=== PATIENT | male | born 1970 | race Native Hawaiian/Other Pacific Islander ===

== ENCOUNTER 2017-11-25 05:05 | Emergency (ER) | payer OTHER ==
--- NOTE | 2017-11-25 05:18 | C.PDOC ---
History Of Present Illness 47 year old male presents to the ED c/o right flank pain and mid epigastric pain , onset around midnight. Patient has a history of kidney stones. Describes pain as sharp and stabbing. Associated with some nausea. No vomiting, diarrhea, fever , chills, or urinary symptoms. Time Seen by Provider: 11/25/17 05:16 Chief Complaint (Nursing): Abdominal Pain History Per: Patient History/Exam Limitations: no limitations Onset/Duration Of Symptoms: Hrs Current Symptoms Are (Timing): Still Present Severity: Moderate Pain Scale Rating Of: 6 Location Of Pain/Discomfort: Epigastric Radiation Of Pain To:: Flank Quality Of Discomfort: Sharp, Stabbing Associated Symptoms: Nausea Exacerbating Factors: None Alleviating Factors: None Recent travel outside of the [place]: No Past Medical History Reviewed: Historical Data, Nursing Documentation, Vital Signs Vital Signs: Last Vital Signs Temp 97.4 F L 11/25/17 05:17 Pulse 69 11/25/17 05:17 Resp 18 11/25/17 05:17 BP 149/95 H 11/25/17 05:17 Pulse Ox 98 11/25/17 05:17 - Medical History PMH: HTN, Kidney Stones Surgical History: No Surg Hx Family History: States: No Known Family Hx - Social History Hx Tobacco Use: No Hx Alcohol Use: Yes Hx Substance Use: No Review Of Systems Constitutional: Negative for: Fever, Chills Gastrointestinal: Positive for: Nausea, Abdominal Pain. Negative for: Vomiting , Diarrhea Genitourinary: Negative for: Dysuria, Frequency, Hematuria Musculoskeletal: Positive for: Other (right flank pain) Physical Exam - Physical Exam Appears: Non-toxic, No Acute Distress Skin: Warm, Dry Head: Normacephalic Eye(s): bilateral: Normal Inspection Oral Mucosa: Moist Neck: Supple Chest: Symmetrical Cardiovascular: Rhythm Regular Respiratory: No Rales, No Rhonchi, No Wheezing Gastrointestinal/Abdominal: Bowel Sounds (tympanic to percussion), Soft, Tenderness (to right flank), No Guarding, No Rebound Extremity: Bilateral: Atraumatic, Normal Color And Temperature, Normal ROM Neurological/Psych: Oriented x3 Gait: Steady ED Course And Treatment - Laboratory Results Result Diagrams: 11/25/17 05:38 11/25/17 05:38 Progress Note: Blood work and urine ordered and reviewed. Patient started on IV fluids, Toradol, and Zofran. Disposition Counseled Patient/Family Regarding: Studies Performed, Diagnosis - Disposition Disposition Time: 05:18 Condition: FAIR Forms: [facility] (Arabic) - Clinical Impression Clinical Impression: Abdominal pain - Scribe Statement The provider has reviewed the documentation as recorded by the Scribe (Precious Knox) Provider Attestation: All medical record entries made by the Scribe were at my direction and personally dictated by me. I have reviewed the chart and agree that the record accurately reflects my personal performance of the history, physical exam, medical decision making, and the department course for this patient. I have also personally directed, reviewed, and agree with the discharge instructions and disposition. Physician Patient Turnover Patient Signed Over To: Moe Barrera Handoff Comments: pending ct, re-eval and disposition
[2017-11-25 05:23] VITALS: RESP 18
[2017-11-25] MEDS ORDERED: Sodium Chloride 0.9% 1,000 ML IV ONE ×2 (05:24→06:05)
[2017-11-25] MEDS ORDERED: Sodium Chloride 0.9% 1,000 ML ONE ×2 (05:27→06:20)
[2017-11-25 05:41] LABS: BASO # 0.1 K/uL (0.0-0.2); BASO % 1.3 % (0.0-2.0); EOS # 0.1 K/uL (0.0-0.7); EOS % 1.6 % (0.0-4.0); HEMOGLOBIN 15.2 g/dL (12.0-18.0); LYMPH # 1.8 K/uL (1.0-4.3); LYMPH % 21.8 % (20.0-40.0); MEAN CELL VOLUME 89.3 fL (80.0-94.0); MEAN CORPUSCULAR HEMOGLOBIN 31.6 pg (27.0-31.0); MEAN CORPUSCULAR HGB CONC 35.3 g/dL (33.0-37.0); MEAN PLATELET VOLUME 9.4 fL (7.2-11.7); MONO # 0.4 K/uL (0.0-0.8); MONO % 4.6 % (0.0-10.0); NEUT # 5.9 K/uL (1.8-7.0); NEUT % 70.7 % (50.0-75.0); NRBC % 0.1 % (0.0-2.0); RBC 4.81 Mil/uL (4.40-5.90); RED CELL DISTRIBUTION WIDTH 13.1 % (11.5-14.5); WHITE BLOOD COUNT 8.4 K/uL (4.8-10.8)
[2017-11-25 05:55] LABS: ALB/GLOB RATIO 1.5 (1.0-2.1); ALBUMIN 4.5 g/dL (3.5-5.0); ALT/SGPT 64 U/L (21-72); AST/SGOT 29 U/L (17-59); BLOOD UREA NITROGEN 14 mg/dL (9-20); CALCIUM 8.9 mg/dl (8.6-10.4); GFR AFRICAN-AMERICAN > 60; GFR NON-AFRICAN AMERICAN > 60; INR 0.9; LIPASE 127 U/L (23-300); PROTHROMBIN TIME 10.2 SECONDS (9.7-12.2)
[2017-11-25 06:35] LABS: URINE BILIRUBIN NEGATIVE (NEGATIVE); URINE BLOOD NEGATIVE (NEGATIVE); URINE CLARITY Clear (Clear); URINE COLOR Yellow (YELLOW); URINE GLUCOSE (UA) NORMAL (Normal); URINE LEUKOCYTE ESTERASE NEG Leu/uL (Negative); URINE PROTEIN NEGATIVE (NEGATIVE); URINE UROBILINOGEN NORMAL mg/dL (0.2-1.0)
[2017-11-25] MEDS ORDERED: Iodixanol 320 MG/ML 100 ML BOTTLE IV ONE (08:24)
--- NOTE | 2017-11-25 10:32 | CT ---
PROCEDURE: CT Abdomen and Pelvis with contrast HISTORY: right flank pain COMPARISON: None. TECHNIQUE: Contrast dose: 100 mL Visipaque 320 Radiation dose: Total exam DLP = 801.06 mGy-cm. This CT exam was performed using one or more of the following dose reduction techniques: Automated exposure control, adjustment of the mA and/or kV according to patient size, and/or use of iterative reconstruction technique. FINDINGS: LOWER THORAX: Unremarkable. LIVER: Mild hepatomegaly. Diffuse diminished attenuation of the liver consistent with fatty infiltration. Smooth contour. No mass. No biliary ductal dilatation. GALLBLADDER AND BILE DUCTS: Unremarkable. PANCREAS: Unremarkable. No gross lesion or ductal dilatation. SPLEEN: Unremarkable. ADRENALS: Unremarkable. No mass. KIDNEYS AND URETERS: Nonspecific 6 mm low-density mass mid right kidney, likely cyst. No other mass. No calculus. No hydronephrosis. No hydroureter or ureteral calculus. VASCULATURE: Unremarkable. No aortic aneurysm. BOWEL: Unremarkable. No obstruction. No gross mural thickening. APPENDIX: Not identified. No secondary findings to suggest appendicitis. PERITONEUM: Unremarkable. No free fluid. No free air. LYMPH NODES: Unremarkable. No enlarged lymph nodes. BLADDER: Unremarkable. REPRODUCTIVE: Normal size prostate. Nonspecific 11 mm rounded low-density lesion within the prostate. BONES: No acute fracture. OTHER FINDINGS: None. IMPRESSION: No acute abnormality. Incidental findings as above. No evidence of urinary calculus or appendicitis. Mild hepatomegaly with diffuse fatty infiltration of the liver. Incidental 11 mm low-density lesion of the prostate common nonspecific. Probable 6 mm right renal cysts.
[2017-11-25 10:55] VITALS: BP 136/90; PULSE 94; TEMP 97.5; O2SAT 97
== END 2017-11-25 10:55 | disposition home or self-care (01) ==
LOC: C.ER 05:05
DX: R10.13 Epigastric pain (principal)
CPT/HCPCS: 74177; 80053; 81001; 83690; 85025; 85610; 85730; 96361; 96374; 96375; 99285; J1885; J2405; J7040; Q9967

== ENCOUNTER 2018-01-31 07:13 | Inpatient (IN) | payer SELFPAY ==
[2018-01-31 07:17] VITALS: BMI 27.4
[2018-01-31] MEDS ORDERED: Sodium Chloride 0.9% 1,000 ML IV ONE (07:44)
[2018-01-31] MEDS ORDERED: Morphine 4 MG/ML VIAL ONE ×2 (07:52→11:15)
[2018-01-31] MEDS ORDERED: Sodium Chloride 0.9% 1,000 ML ONE (07:53)
[2018-01-31 08:10] LABS: HEMOGLOBIN 15.4 g/dL (12.0-18.0); LYMPH # 0.7 K/uL (1.0-4.3); LYMPH % 6.8 % (20.0-40.0); MEAN CELL VOLUME 89.5 fL (80.0-94.0); MEAN CORPUSCULAR HEMOGLOBIN 31.2 pg (27.0-31.0); MEAN CORPUSCULAR HGB CONC 34.8 g/dL (33.0-37.0); MEAN PLATELET VOLUME 9.7 fL (7.2-11.7); MONO # 0.3 K/uL (0.0-0.8); MONO % 2.3 % (0.0-10.0); NEUT # 9.9 K/uL (1.8-7.0); NEUT % 90.9 % (50.0-75.0); NRBC % 0.1 % (0.0-2.0); PLATELET COUNT 234 K/uL (130-400); RBC 4.92 Mil/uL (4.40-5.90); RED CELL DISTRIBUTION WIDTH 13.3 % (11.5-14.5); WHITE BLOOD COUNT 10.9 K/uL (4.8-10.8)
--- NOTE | 2018-01-31 08:10 | C.PDOC ---
History Of Present Illness 47 year old male presents to ED for evaluation of RUQ abdominal pain associated with nausea and vomiting since last night. Pt admits to being seen here 2 months ago for similar episode, notes he is unsure of what the cause of his pain was. Spring denies fever, diarrhea, dysuria/hematuria, chest pain, or shortness of breath. Time Seen by Provider: 01/31/18 07:25 Chief Complaint (Nursing): Abdominal Pain History Per: Patient History/Exam Limitations: no limitations Onset/Duration Of Symptoms: Days Current Symptoms Are (Timing): Still Present Severity: Moderate Location Of Pain/Discomfort: RUQ Radiation Of Pain To:: None Quality Of Discomfort: "Pain" Associated Symptoms: Nausea, Vomiting. denies: Fever, Diarrhea Exacerbating Factors: None Alleviating Factors: None Additional History Per: Patient Past Medical History Reviewed: Historical Data, Nursing Documentation, Vital Signs Vital Signs: Last Vital Signs Temp 98.1 F 02/01/18 08:36 Pulse 89 02/01/18 08:36 Resp 20 02/01/18 08:36 BP 141/85 02/01/18 08:36 Pulse Ox 96 02/01/18 08:36 - Medical History PMH: HTN, Kidney Stones Family History: States: No Known Family Hx - Social History Hx Tobacco Use: No Hx Alcohol Use: Yes Hx Substance Use: No - Immunization History Hx Tetanus Toxoid Vaccination: Yes Hx Influenza Vaccination: Yes Hx Pneumococcal Vaccination: Yes Review Of Systems Except As Marked, All Systems Reviewed And Found Negative. Constitutional: Negative for: Fever, Chills Cardiovascular: Negative for: Chest Pain Respiratory: Negative for: Cough, Shortness of Breath Gastrointestinal: Positive for: Nausea, Vomiting, Abdominal Pain. Negative for : Diarrhea, Constipation, Hematemesis Genitourinary: Negative for: Dysuria, Frequency, Hematuria Musculoskeletal: Negative for: Back Pain Physical Exam - Physical Exam Appears: Well, Non-toxic, Other (Uncomfortable appearing ) Skin: Normal Color, Warm, Dry Head: Normacephalic Eye(s): bilateral: Normal Inspection Oral Mucosa: Moist Neck: Supple Cardiovascular: Rhythm Regular Respiratory: Normal Breath Sounds, No Rales, No Rhonchi, No Wheezing Gastrointestinal/Abdominal: Bowel Sounds, Soft, Tenderness (RUQ, (+)Mccain's), Guarding (voluntary ), No Rebound, No Other ((-)McBurney's) Back: Normal Inspection, No CVA Tenderness Extremity: Normal ROM Neurological/Psych: Oriented x3 ED Course And Treatment - Laboratory Results Result Diagrams: 01/31/18 08:06 01/31/18 08:06 ECG: Interpreted By Me, Viewed By Me (NSR 60 bpm, normal axis, no acute ST/T wave changes) O2 Sat by Pulse Oximetry: 100 (RA) Pulse Ox Interpretation: Normal - Radiology CXR: Interpreted by Me, Viewed By Me CXR Interpretation: Yes: No Acute Disease. No: Infiltrates Progress Note: Blood work, UA, US of RUQ ordered and reviewed. Patient given IV NS bolus, IV morphine, IV zofran. 11:55am- Patient to be admitted to Dr. Saha's service for cholelithiasis, RUQ pain, r/o cholecystitis. Reevaluation Time: 10:50 Reassessment Condition: Unchanged (On reassessment, patient states pain is only mildly improved. On exam, (+) Mccain's. US shows gallstones without evidence of acute cholecystitis. 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 Saha, will have medical surgical tech come and eval patient. Disposition - Disposition Disposition: HOSPITALIZED Disposition Time: 11:57 Condition: STABLE - Clinical Impression Clinical Impression: Cholelithiasis, RUQ abdominal pain, Cholecystitis, acute - Scribe Statement The provider has reviewed the documentation as recorded by the Dionne Amaral All medical record entries made by the Stevenibadam were at my direction and personally dictated by me. I have reviewed the chart and agree that the record accurately reflects my personal performance of the history, physical exam, medical decision making, and the department course for this patient. I have also personally directed, reviewed, and agree with the discharge instructions and disposition. Decision To Admit - Pt Status Changed To: Hospital Disposition Of: Inpatient - Admit Certification Admit to Inpatient:: After my assessment, the patient will require hospitalization for at least two midnights. This is because of the severity of symptoms shown, intensity of services needed, and/or the medical risk in this patient being treated as an outpatient. - InPatient: Physician Admission Certification:: see notes - . Bed Request Type: Regular Admitting Physician: Kranthi Saha Patient Diagnosis: Cholelithiasis, RUQ abdominal pain, Cholecystitis, acute
[2018-01-31 08:36] LABS: ALB/GLOB RATIO 1.5 (1.0-2.1); ALBUMIN 5.1 g/dL (3.5-5.0); ALT/SGPT 66 U/L (21-72); AST/SGOT 50 U/L (17-59); BLOOD UREA NITROGEN 13 mg/dL (9-20); CALCIUM 9.6 mg/dl (8.6-10.4); GFR AFRICAN-AMERICAN > 60; GFR NON-AFRICAN AMERICAN > 60; LIPASE 109 U/L (23-300)
[2018-01-31 09:36] LABS: EOSINOPHIL 1 % (0-4); LYMPHOCYTE 5 % (20-40); MONOCYTE 2 % (0-10); NEUTROPHIL 92 % (50-75); PLATELET ESTIMATE NORMAL (NORMAL); TOTAL CELLS COUNTED 100
--- NOTE | 2018-01-31 10:23 | US ---
HISTORY: ruq pain, r/o cholecystitis COMPARISON: None. TECHNIQUE: Sonographic evaluation of the right upper quadrant of the abdomen. FINDINGS: LIVER: Measures 21.2 cm in length. Diffusely increased echogenicity of the liver parenchyma. Consistent with fatty infiltration. Smooth contour. No mass. No biliary ductal dilatation. GALLBLADDER: Cholelithiasis. The gallstones, though dependent, were not observed to be mobile with decubitus positioning. Significance unclear. No mural thickening or pericholecystic fluid. Negative sonographic Mccain's sign. COMMON BILE DUCT: Measures 4 mm. No stones. No dilatation. PANCREAS: Unremarkable as visualized. No mass. No ductal dilatation. RIGHT KIDNEY: Measures 12.7 cm in length. Normal cortical thickness and echogenicity. Two small cortical cysts, 1.5 cm and 0.8 cm, respectively. No solid mass. No calculus or hydronephrosis. AORTA: No aneurysmal dilatation. IVC: Unremarkable. OTHER FINDINGS: None . IMPRESSION: Cholelithiasis without sonographic evidence of cholecystitis. Hepatomegaly with diffuse fatty infiltration. Two incidental small right renal cortical cysts.
--- NOTE | 2018-01-31 12:23 | CP.PCM.HP ---
History of Present Illness - History of Present Illness History of Present Illness: SURGERY H&P 47M presents with right upper quadrant pain that began 12 hours ago. Describes the pain has sharp and constant. He has had this type of pain before in the past last month. Patient states the pain woke him up from his sleep. He admits to nausea, and vomiting. Denies fevers but states he is sweaty. Patient usually likes to eat a lot of fatty and fried foods. He denies change in bowel movements. PMH: HTN, Kidney stone PSH: denies Social: denies tobacco, admits to social alcohol use Allergies: NKDA Present on Admission - Present on Admission Any Indicators Present on Admission: No Past Patient History - Past Social History Smoking Status: Never Smoked - CARDIAC Hx Hypertension: Yes - RENAL Hx Kidney Stones: Yes - PSYCHIATRIC Hx Substance Use: No - SURGICAL HISTORY Hx Surgeries: No - ANESTHESIA Hx Anesthesia: No Meds Allergies/Adverse Reactions: Allergies Allergy/AdvReac Type Severity Reaction Status Date / Time No Known Allergies Allergy Verified 01/31/18 07:16 Physical Exam - Constitutional Additional comments: uncomfortable due to pain - ENT Exam ENT Exam: Mucous Membranes Moist - Respiratory Exam Respiratory Exam: Clear to Auscultation Bilateral, NORMAL BREATHING PATTERN - Cardiovascular Exam Cardiovascular Exam: REGULAR RHYTHM, +S1, +S2 - GI/Abdominal Exam GI & Abdominal Exam: Soft, Tenderness (RUQ mod-severe tenderness). absent: Distended, Firm, Guarding, Rebound, Rigid - Extremities Exam Extremities exam: Negative for: pedal edema, tenderness - Neurological Exam Neurological exam: Alert, Oriented x3 - Psychiatric Exam Psychiatric exam: Normal Affect, Normal Mood - Skin Skin Exam: Dry, Intact, Normal Color, Warm Results - Vital Signs Recent Vital Signs: Last Vital Signs Temp 97.7 F 01/31/18 07:17 Pulse 66 01/31/18 07:17 Resp 20 01/31/18 07:17 BP 163/90 H 01/31/18 07:17 Pulse Ox 100 01/31/18 09:02 - Labs Result Diagrams: 01/31/18 08:06 01/31/18 08:06 Labs: Laboratory Results - last 24 hr 01/31/18 01/31/18 08:06 08:06 WBC 10.9 H RBC 4.92 Hgb 15.4 Hct 44.1 MCV 89.5 MCH 31.2 H MCHC 34.8 RDW 13.3 Plt Count 234 MPV 9.7 Neut % (Auto) 90.9 H Lymph % (Auto) 6.8 L [place] % (Auto) 2.3 Eos % (Auto) 0.0 Baso % (Auto) 0.0 Neut # (Auto) 9.9 H Lymph # (Auto) 0.7 L [place] # (Auto) 0.3 Eos # (Auto) 0.0 Baso # (Auto) 0.0 Neutrophils % (Manual) 92 H Lymphocytes % (Manual) 5 L Monocytes % (Manual) 2 Eosinophils % (Manual) 1 Platelet Estimate Normal RBC Morphology Normal Sodium 141 Potassium 4.0 Chloride 104 Carbon Dioxide 19 L Anion Gap 22 H BUN 13 Creatinine 0.6 L Est GFR ( Amer) > 60 Est GFR (Non-Af Amer) > 60 Random Glucose 182 H Calcium 9.6 Total Bilirubin 0.7 AST 50 ALT 66 Alkaline Phosphatase 175 H D Total Protein 8.4 H Albumin 5.1 H Globulin 3.4 Albumin/Globulin Ratio 1.5 Lipase 109 Assessment & Plan - Assessment and Plan (Free Text) Assessment: 47M with biliary colic US: cholelithiasis, no GBW thickening, no pericholecystic fluid Plan: - NPO, IVF - Pain control - anti emetic - continue antibiotic - SCD - DVT ppx - OR today for lap jesus Discussed with Dr Yifan Fry, PGY2
[2018-01-31] MEDS ORDERED: HYDROmorphone 1 mg/ml ISec IVP PRN (12:27)
[2018-01-31 12:38] LABS: INR 1.1; PROTHROMBIN TIME 11.6 SECONDS (9.7-12.2)
[2018-01-31] MEDS ORDERED: Piperacillin/Tazobact 3.375 gm 100 ML IVPB ONE (12:40)
[2018-01-31] MEDS: Piperacillin/Tazobact 3.375 GM in Sodium Chloride 100 ML IVPB SCH ×2 (12:42→18:07)
[2018-01-31] MEDS: Sodium Chloride 0.9% 1,000 ML IV SCH ×2 (12:42→18:11)
[2018-01-31] MEDS ORDERED: HYDROmorphone 0.5 mg/0.5 ml ISec IVP PRN (12:43)
[2018-01-31] MEDS ORDERED: Propofol 10 mg/ml Inj (20 ML) ONE (12:49)
[2018-01-31] MEDS ORDERED: Succinylcholine Chloride 20 mg/ml Syr (5 ml) IV ONE (12:50)
[2018-01-31] MEDS ORDERED: Phenylephrine 10 mg/ml Inj ONE (13:04)
[2018-01-31 13:10] LABS: URINE BILIRUBIN NEGATIVE (NEGATIVE); URINE BLOOD NEGATIVE (NEGATIVE); URINE CLARITY Clear (Clear); URINE COLOR Yellow (YELLOW); URINE GLUCOSE (UA) 2+ mg/dL (Normal); URINE LEUKOCYTE ESTERASE NEG Leu/uL (Negative); URINE PROTEIN NEGATIVE (NEGATIVE); URINE UROBILINOGEN NORMAL mg/dL (0.2-1.0)
[2018-01-31] MEDS ORDERED: Rocuronium 10 mg/ml (5 ml) ONE (13:36)
[2018-01-31] MEDS ORDERED: Esmolol 100 mg/10ml Inj IV ONE (13:55)
[2018-01-31] MEDS ORDERED: Neostigmine Methylsulfate 3mg/3ml Syringe IV ONE (13:57)
--- NOTE | 2018-01-31 14:33 | PCM.SURG1 ---
Surgeon's Initial Post Op Note - Surgeon's Notes Surgeon: MD Yifan Shirt Ironer Supervisor: LACY FryY2 Pre-Operative Diagnosis: Acute Cholecystitis Operative Findings: Inflammed gallbladder Post-Operative Diagnosis: same Operation Performed: laparoscopic cholecystectomy Specimen/Specimens Removed: gallbladder Estimated Blood Loss: EBL {In ML}: 20 Date of Surgery/Procedure: 01/31/18 Time of Surgery/Procedure: 13:00
--- NOTE | 2018-01-31 15:10 | RAD ---
PROCEDURE: CHEST RADIOGRAPH, 1 VIEW HISTORY: PREOP COMPARISON: None available. FINDINGS: LUNGS: Clear. PLEURA: No pneumothorax or pleural fluid seen. CARDIOVASCULAR: Normal. OSSEOUS STRUCTURES: No significant abnormalities. VISUALIZED UPPER ABDOMEN: Normal. OTHER FINDINGS: None. IMPRESSION: No active disease.
[2018-01-31 17:14] VITALS: RESP 20
[2018-02-01] MEDS: Piperacillin/Tazobact 3.375 GM in Sodium Chloride 100 ML IVPB SCH ×3 (00:07→12:00)
[2018-02-01] MEDS: Sodium Chloride 0.9% 1,000 ML IV SCH ×2 (03:00→08:49)
--- NOTE | 2018-02-01 06:31 | CP.PCM.DIS ---
Provider - Provider Date of Admission: 01/31/18 11:57 Attending physician: Kranthi Saha MD Time Spent in preparation of Discharge (in minutes): 30 Hospital Course - Lab Results Lab Results: Most Recent Lab Values WBC 10.9 K/uL (4.8-10.8) H 01/31/18 08:06 RBC 4.92 Mil/uL (4.40-5.90) 01/31/18 08:06 Hgb 15.4 g/dL (12.0-18.0) 01/31/18 08:06 Hct 44.1 % (35.0-51.0) 01/31/18 08:06 MCV 89.5 fL (80.0-94.0) 01/31/18 08:06 MCH 31.2 pg (27.0-31.0) H 01/31/18 08:06 MCHC 34.8 g/dL (33.0-37.0) 01/31/18 08:06 RDW 13.3 % (11.5-14.5) 01/31/18 08:06 Plt Count 234 K/uL (130-400) 01/31/18 08:06 MPV 9.7 fL (7.2-11.7) 01/31/18 08:06 Neut % (Auto) 90.9 % (50.0-75.0) H 01/31/18 08:06 Lymph % (Auto) 6.8 % (20.0-40.0) L 01/31/18 08:06 [place] % (Auto) 2.3 % (0.0-10.0) 01/31/18 08:06 Eos % (Auto) 0.0 % (0.0-4.0) 01/31/18 08:06 Baso % (Auto) 0.0 % (0.0-2.0) 01/31/18 08:06 Neut # (Auto) 9.9 K/uL (1.8-7.0) H 01/31/18 08:06 Lymph # (Auto) 0.7 K/uL (1.0-4.3) L 01/31/18 08:06 [place] # (Auto) 0.3 K/uL (0.0-0.8) 01/31/18 08:06 Eos # (Auto) 0.0 K/uL (0.0-0.7) 01/31/18 08:06 Baso # (Auto) 0.0 K/uL (0.0-0.2) 01/31/18 08:06 Neutrophils % (Manual) 92 % (50-75) H 01/31/18 08:06 Lymphocytes % (Manual) 5 % (20-40) L 01/31/18 08:06 Monocytes % (Manual) 2 % (0-10) 01/31/18 08:06 Eosinophils % (Manual) 1 % (0-4) 01/31/18 08:06 Platelet Estimate Normal (NORMAL) 01/31/18 08:06 RBC Morphology Normal 01/31/18 08:06 PT 11.6 SECONDS (9.7-12.2) 01/31/18 12:24 INR 1.1 01/31/18 12:24 APTT 33 SECONDS (21-34) 01/31/18 12:24 Sodium 141 mmol/L (132-148) 01/31/18 08:06 Potassium 4.0 mmol/L (3.6-5.2) 01/31/18 08:06 Chloride 104 mmol/L (98-107) 01/31/18 08:06 Carbon Dioxide 19 mmol/L (22-30) L 01/31/18 08:06 Anion Gap 22 (10-20) H 01/31/18 08:06 BUN 13 mg/dL (9-20) 01/31/18 08:06 Creatinine 0.6 mg/dL (0.8-1.5) L 01/31/18 08:06 Est GFR ( Amer) > 60 01/31/18 08:06 Est GFR (Non-Af Amer) > 60 01/31/18 08:06 Random Glucose 182 mg/dL (75-110) H 01/31/18 08:06 Calcium 9.6 mg/dl (8.6-10.4) 01/31/18 08:06 Total Bilirubin 0.7 mg/dL (0.2-1.3) 01/31/18 08:06 AST 50 U/L (17-59) 01/31/18 08:06 ALT 66 U/L (21-72) 01/31/18 08:06 Alkaline Phosphatase 175 U/L (38-126) H D 01/31/18 08:06 Total Protein 8.4 g/dL (6.3-8.3) H 01/31/18 08:06 Albumin 5.1 g/dL (3.5-5.0) H 01/31/18 08:06 Globulin 3.4 gm/dL (2.2-3.9) 01/31/18 08:06 Albumin/Globulin Ratio 1.5 (1.0-2.1) 01/31/18 08:06 Lipase 109 U/L (23-300) 01/31/18 08:06 Urine Color Yellow (YELLOW) 01/31/18 12:36 Urine Clarity Clear (Clear) 01/31/18 12:36 Urine pH 7.0 (5.0-8.0) 01/31/18 12:36 Ur Specific [place] 1.021 (1.003-1.030) 01/31/18 12:36 Urine Protein Negative mg/dL (NEGATIVE) 01/31/18 12:36 Urine Glucose (UA) 2+ mg/dL (Normal) H 01/31/18 12:36 Urine Ketones 1+ mg/dL (NEGATIVE) H 01/31/18 12:36 Urine Blood Negative (NEGATIVE) 01/31/18 12:36 Urine Nitrate Negative (NEGATIVE) 01/31/18 12:36 Urine Bilirubin Negative (NEGATIVE) 01/31/18 12:36 Urine Urobilinogen Normal mg/dL (0.2-1.0) 01/31/18 12:36 Ur Leukocyte Esterase Neg [place]/uL (Negative) 01/31/18 12:36 Urine WBC (Auto) < 1 /hpf (0-5) 01/31/18 12:36 Urine RBC (Auto) 2 /hpf (0-3) 01/31/18 12:36 Blood Type O POSITIVE 01/31/18 12:24 Antibody Screen Negative 01/31/18 12:24 - Hospital Course Hospital Course: 47M presented with pain due to cholecystitis, immediately taken to the OR for lap cholecystectomy Patient doing well POD1, tolerating diet, denies nausea/vomiting. Wants to go home. Discharge Exam - Head Exam Head Exam: ATRAUMATIC - Respiratory Exam Respiratory Exam: Clear to PA & Lateral, NORMAL BREATHING PATTERN - Cardiovascular Exam Cardiovascular Exam: REGULAR RHYTHM, +S1, +S2 - GI/Abdominal Exam GI & Abdominal Exam: Soft. absent: Distended, Firm, Guarding, Rebound, Rigid, Tenderness Additional comments: dressing CDI - Neurological Exam Neurological exam: Alert, Oriented x3 - Skin Skin Exam: Dry, Intact, Normal Color, Warm Discharge Plan - Follow Up Plan Condition: GOOD Disposition: HOME/ ROUTINE Patient education suggested?: Yes Instructions: Cholecystectomy, Laparoscopic Surgery Additional Instructions: 1) Please follow up with Dr. Saha in 2 weeks 2) Please remove top bandage tomorrow and keep steristrips on. Steristrips will fall off on their own 3) May shower, but do not bath 4) No diet restrictions 5) Please take medications as directed 6) No driving while on opioid medications Referrals: Kranthi Saha MD [Staff Provider] -
[2018-02-01 08:39] VITALS: BP 141/85; PULSE 89; TEMP 98.1
[2018-02-01] MEDS ORDERED: Pneumococcal 23-Valent Vaccine IM ONE (12:00)
[2018-02-01 15:35] VITALS: O2SAT 100
--- NOTE | 2018-02-02 19:38 | OP ---
PROCEDURE DATE: 01/31/2018 SURGEON: Kranthi Saha MD PMO CONSULTANT: Manas Fry DO ANESTHESIA: General. ANESTHESIOLOGIST: Jim Giordano MD PREOPERATIVE DIAGNOSIS: Acute cholecystitis. POSTOPERATIVE DIAGNOSIS: Acute cholecystitis. PROCEDURE: Laparoscopic cholecystectomy. DESCRIPTION OF OPERATION: With the patient in the supine position, the abdomen was prepped and draped in the usual sterile manner. Veress needle puncture was performed at the umbilicus with insufflation to 15 cm water pressure of CO2 and a 10 mm laparoscopic trocar was inserted via an infraumbilical incision. Under direct vision, additional trocars were inserted in the epigastrium and right costal margin. The gallbladder was visualized, it was tensely distended and it was aspirated of 40 mL of clear brown bile allowing the fundus to be grasped and elevated. There were adhesions to the peritoneal surface of the gallbladder consistent with acute inflammation, and these were taken down to expose the area of infundibulum which was grasped and retracted laterally. There appeared to be a mass of small stones collected within the infundibulum. The cystic duct was identified and dissected, it was cleared down towards the area of the common bile duct and there was noted to be what appeared to be possibly small stones within the visualized portion of the cystic duct. A clip was placed on the cyst duct close to the gallbladder, and the gallbladder was partially opened allowing a quantity of small stones and large sludge to be expressed backwards out of the duct. When this appeared to be cleared, the cystic duct was then doubly clipped on the common duct side and completely divided. The cystic artery was identified and dissected. The cystic artery was triply clipped and divided, and the gallbladder was dissected free of the liver bed using electrocautery. The liver bed was inspected for hemostasis and the dissection was completed. The gallbladder was placed in a specimen retrieval bag and removed via the umbilical port site. It was noted to contain one moderately-sized stone in addition to the quantity of smaller stones. The right upper quadrant was irrigated and suctioned. The pneumoperitoneum was released and the trocars were removed. The umbilical port site was closed with a [id number] fascial suture of 0 Vicryl. All incisions were closed with 4-0 Monocryl subcuticular sutures and Steri-Strips. Dry sterile dressings were applied. The patient tolerated the procedure well and transferred to the recovery room in stable condition. Estimated blood loss for the procedure was 20 mL. Kranthi Saha MD
--- NOTE | 2018-02-03 12:12 | CARD ---
APPROVED REPORT EKG Measurement Heart [id number] <Conclusion> Normal sinus rhythm Normal ECG
== END 2018-02-01 13:24 | disposition home or self-care (01) | DRG 419 ==
LOC: C.ER 07:13 → C.9E 11:57 → C.3T 12:26
PROVIDERS: ADMIT Specialist; ATTEND Specialist
PROC: 0FT44ZZ Resection of Gallbladder, Percutaneous Endoscopic Approach (ICD-10-PCS; principal; 2018-01-31 13:00)
DX: K80.12 Calculus of gallbladder with acute and chronic cholecystitis without obstruction (principal); Z87.442 Personal history of urinary calculi; I10 Essential (primary) hypertension